=== PATIENT | male | born 1935 | race Caucasian/White ===

== ENCOUNTER 2017-02-21 07:43 | Day surgery (SDC) | payer MEDICARE, OTHER ==
[~2017-02-21 07:43] MED LIST: AMOX TR-K CLV1 EAC2 PO; ANCEF-D5W2000 MG/50 IV; ANTIBIOTIC PO; ASPIR 8181 MG PO; AUGMENTIN 875-1 EAC2 PO; AUGMENTIN875 MG PO; CENTRUM SILVER1 TA PO; CLINDAMYCIN HC150 MG PO; DUEXIS 800-26.1 EACH PO; LASIX40 MG PO; MOTRIN800 MG; MOTRIN800 MG PO; MUCINEX600 M1 PO; NORCO 5/325 TAB1 TAB; NORCO 5/3251 TA2 PO; NORVASC5 MG PO; PEN-VEE K500 MG PO; PROBIOTIC1 EACH PO; PROTANDUM; SIMVASTATIN10 MG PO; VITAMIN D31000 UNI3 PO; ZOCOR10 MG
[2017-02-22] MEDS ORDERED: PERCOCET 5-3251 EACH PO (16:20)
[2017-02-22] MEDS ORDERED: PHENERGAN12.5 M2 PO (16:22)
== END 2017-02-22 17:20 ==
LOC: SRG 07:43 → SHSC 07:50 → 5EA 11:45
PROC: 0Y6N0Z9 Detachment at Left Foot, Partial 1st Ray, Open Approach (ICD-10-PCS; principal; 2017-02-21)
PROC: 0Y6N0ZB Detachment at Left Foot, Partial 2nd Ray, Open Approach (ICD-10-PCS; 2017-02-21)
PROC: 0Y6N0ZC Detachment at Left Foot, Partial 3rd Ray, Open Approach (ICD-10-PCS; 2017-02-21)
PROC: 0Y6N0ZD Detachment at Left Foot, Partial 4th Ray, Open Approach (ICD-10-PCS; 2017-02-21)
PROC: 0Y6N0ZF Detachment at Left Foot, Partial 5th Ray, Open Approach (ICD-10-PCS; 2017-02-21)
DX: E11.621 Type 2 diabetes mellitus with foot ulcer (principal); L97.529 Non-pressure chronic ulcer of other part of left foot with unspecified severity; E11.42 Type 2 diabetes mellitus with diabetic polyneuropathy; E78.5 Hyperlipidemia, unspecified; M19.90 Unspecified osteoarthritis, unspecified site; H91.90 Unspecified hearing loss, unspecified ear; F32.9 Major depressive disorder, single episode, unspecified; E66.9 Obesity, unspecified; Z68.35 Body mass index [BMI] 35.0-35.9, adult; I48.0 Paroxysmal atrial fibrillation; Z79.2 Long term (current) use of antibiotics; Z79.82 Long term (current) use of aspirin; Z79.899 Other long term (current) drug therapy; Z86.711 Personal history of pulmonary embolism; Z90.49 Acquired absence of other specified parts of digestive tract; Z98.49 Cataract extraction status, unspecified eye; Z96.1 Presence of intraocular lens; Z96.642 Presence of left artificial hip joint; Z96.651 Presence of right artificial knee joint; Z89.412 Acquired absence of left great toe; Z89.422 Acquired absence of other left toe(s); Z98.890 Other specified postprocedural states
CPT/HCPCS: G8978-GP-CJ; G8979-GP-CI; G8980-GP-CJ; J0690